=== PATIENT | female | born 1970 | race Caucasian/White ===

== ENCOUNTER 2022-10-01 12:38 | Emergency (ER) | payer MEDICAID ==
[~2022-10-01] VITALS: Ht 160 cm; Wt 75.0 kg
[~2022-10-01 12:38] MED LIST: NO HOME MEDS
[2022-10-01 14:13] VITALS: BP 131/74
[2022-10-01] MEDS ORDERED: predniSONE 20 mg tablet PO ONE (14:20)
[2022-10-01] MEDS ORDERED: ipratropium/albuterol 3ml nebule NEB ONE (14:20)
[2022-10-01] MEDS ORDERED: PRED20TA PO (14:41)
[2022-10-01] MEDS ORDERED: AMOX-580 PO (14:41)
[2022-10-01] MEDS ORDERED: ALBU8HFA PO (14:41)
== END 2022-10-01 14:59 | disposition home or self-care (01) ==
LOC: ER 12:38
DX: J20.9 Acute bronchitis, unspecified (principal); F41.9 Anxiety disorder, unspecified; F17.200 Nicotine dependence, unspecified, uncomplicated; Z98.51 Tubal ligation status; Z98.890 Other specified postprocedural states; Z72.89 Other problems related to lifestyle; Z88.5 Allergy status to narcotic agent; Z88.1 Allergy status to other antibiotic agents; Z79.899 Other long term (current) drug therapy
CPT/HCPCS: 94640; 99283; J7512; 94760